=== PATIENT | male | born 1970 | race Hispanic/Latino ===

== ENCOUNTER 2017-12-04 10:46 | Emergency (ER) | payer SELFPAY, OTHER ==
[2017-12-04 12:44] LABS: Bilirubin Negative (Negative); Blood, Urine Negative (Negative); Clarity CLEAR (Clear); Glucose, Urine (Dipstick) Negative (Negative); Leukocyte Negative (Negative); Nitrite Negative (Negative); Protein, Urine (Dipstick) Negative (Neg-Trace); Specific Gravity, Urine 1.016 (1.002-1.036); Urobilinogen 0.2 mg/dL (0.2-1.0)
[2017-12-04 12:55] LABS: #Lymphocytes 0.4 thou/uL (1.20-3.40); #Monocytes 0.3 thou/uL (0.11-0.59); #Neutrophils 8.6 thou/uL (1.40-6.50); %Eosinophils 0.2 % (0.0-10.0); %Lymphocytes 4.4 % (21.0-51.0); %Monocytes 3.6 % (0.0-10.0); %Neutrophils 91.8 % (42.0-75.0); Hemoglobin 16.5 g/dL (14.0-18.0); Mean Corpuscular HGB CONC 34.8 g/dL (32.0-36.0); Mean Corpuscular Volume 89.1 fl (80.0-94.0); Mean Platelet Volume 9.2 fL (7.4-10.4); Platelet Count 173 thou/uL (130-400); RBC Distribution Width 11.4 % (11.5-14.5); Red Blood Cell (RBC) Count 5.33 mill/uL (4.70-6.10); White Blood Cell (WBC) Count 9.4 thou/uL (4.8-10.8)
[2017-12-04] MEDS ORDERED: Acetaminophen 500 MG TAB ONE (13:10)
[2017-12-04 13:20] LABS: ALT (SGPT) 91 U/L (8-55); AST (SGOT) 62 U/L (5-34); Albumin 4.7 g/dL (3.5-5.0); Alkaline Phosphatase 99 U/L (40-150); Anion Gap 14 mmol/L (10-20); BUN (Urea Nitrogen) 21 mg/dL (8.9-20.6); Bilirubin, Total 0.7 mg/dL (0.2-1.2); Calc. Creatinine Clearance 0 mL/min (70-130); Carbon Dioxide 25 mmol/L (22-29); Chloride 99 mmol/L (98-107); Estimated GFR-MDRD 69; Globulin 3.1 g/dL (2.4-3.5); Glucose 117 mg/dL (70-105); Potassium 4.3 mmol/L (3.5-5.1); Protein, Total 7.8 g/dL (6.0-8.3); Sodium 134 mmol/L (136-145)
--- NOTE | 2017-12-04 15:51 | RAD ---
SINGLE VIEW OF THE CHEST: Comparison: None. History: Tremors, cough. FINDINGS: Single view of the chest shows a normal sized cardiomediastinal silhouette. There is no evidence of c onsolidation, mass, or pleural effusion. The bones are unremarkable. IMPRESSION: No evidence of acute cardiopulmonary disease. POS: [facility]
[2017-12-04] MEDS ORDERED: traMADol HCl 50 MG TAB ONE (15:52)
--- NOTE | 2017-12-04 15:52 | RAD ---
LUMBAR SPINE 3 VIEWS: Date: 12/04/17 HISTORY: Pain. COMPARISON: Lumbar spine radiographs from 2015. FINDINGS: No acute fracture or malalignment. Minimal narrowing L4-5 disc space. Paraspinal soft tissues are unremarkable. IMPRESSION: No acute abnormality. Very mild spondylosis L4-5. POS: [facility]
--- NOTE | 2017-12-04 15:53 | RAD ---
TWO VIEWS LEFT HIP: Comparison: None. History: Tremors, myalgia. Bilateral lower extremity aching. FINDINGS: Two views of the right hip shows no evidence of acute fracture or dislocation. No degenerative change s are seen. No soft tissue swelling is present. IMPRESSION: Unremarkable exam. POS: [facility]
== END 2017-12-04 17:23 | disposition home or self-care (01) ==
LOC: ERS 10:46
DX: J18.9 Pneumonia, unspecified organism (principal); K21.9 Gastro-esophageal reflux disease without esophagitis
CPT/HCPCS: 36415; 71045; 72100; 80053; 81003; 85025; 87804; 99283

== ENCOUNTER 2017-12-05 20:35 | Emergency (ER) | payer SELFPAY ==
[2017-12-05 21:38] LABS: #Basophils 0.1 thou/uL (0.0-0.2); #Eosinphils 0.1 thou/uL (0.0-0.7); #Lymphocytes 1.4 thou/uL (1.20-3.40); #Monocytes 0.5 thou/uL (0.11-0.59); #Neutrophils 2.1 thou/uL (1.40-6.50); %Basophils 1.5 % (0.0-1.0); %Eosinophils 1.7 % (0.0-10.0); %Monocytes 12.6 % (0.0-10.0); %Neutrophils 50.2 % (42.0-75.0); Hemoglobin 15.5 g/dL (14.0-18.0); Mean Corpuscular HGB CONC 34.4 g/dL (32.0-36.0); Mean Corpuscular Hemoglobin 29.2 pg (27.0-31.0); Mean Platelet Volume 10.3 fL (7.4-10.4); Platelet Count 175 thou/uL (130-400); RBC Distribution Width 10.5 % (11.5-14.5); Red Blood Cell (RBC) Count 5.31 mill/uL (4.70-6.10); White Blood Cell (WBC) Count 4.2 thou/uL (4.8-10.8)
--- NOTE | 2017-12-05 21:43 | RAD ---
PA AND LATERAL CHEST: 12/05/17 HISTORY: Shortness of breath, dyspnea. Heart size and mediastinum are within normal limits. The lungs are clear of infiltrates. No bony find ings. IMPRESSION: No active intrathoracic disease. POS: [facility]
[2017-12-05 21:53] LABS: ALT (SGPT) 95 U/L (8-55); AST (SGOT) 46 U/L (5-34); Albumin 4.3 g/dL (3.5-5.0); Alkaline Phosphatase 101 U/L (40-150); Anion Gap 14 mmol/L (10-20); BUN (Urea Nitrogen) 14 mg/dL (8.9-20.6); Bilirubin, Total 0.5 mg/dL (0.2-1.2); Calc. Creatinine Clearance 0 mL/min (70-130); Calcium 9.6 mg/dL (7.8-10.44); Carbon Dioxide 28 mmol/L (22-29); Chloride 100 mmol/L (98-107); Estimated GFR-MDRD 68; Globulin 3.1 g/dL (2.4-3.5); Glucose 113 mg/dL (70-105); Lipase 52 U/L (8-78); Potassium 4.2 mmol/L (3.5-5.1); Protein, Total 7.4 g/dL (6.0-8.3); Sodium 138 mmol/L (136-145)
[2017-12-05 21:56] LABS: CKMB 0.6 ng/mL (0-6.6); Troponin I 0.025 ng/mL (< 0.028)
== END 2017-12-05 22:25 | disposition home or self-care (01) ==
LOC: SCSER 20:35
DX: R50.9 Fever, unspecified (principal); K21.9 Gastro-esophageal reflux disease without esophagitis
CPT/HCPCS: 71046; 80053; 82553; 83690; 83880; 84484; 85025; 85379; 93005

== ENCOUNTER 2018-02-25 18:05 | Emergency (ER) | payer OTHER, SELFPAY | END 2018-02-25 18:22 | disposition home or self-care (01) | LOC: SCSER 18:05 | DX: H66.92 Otitis media, unspecified, left ear (principal); K21.9 Gastro-esophageal reflux disease without esophagitis | CPT/HCPCS: 99283 ==

== ENCOUNTER 2018-08-06 18:11 | Observation (INO) | payer OTHER, SELFPAY ==
[2018-08-06 18:43] LABS: #Basophils 0.1 thou/uL (0.0-0.2); #Eosinphils 0.3 thou/uL (0.0-0.7); #Lymphocytes 3.5 thou/uL (1.20-3.40); #Monocytes 0.4 thou/uL (0.11-0.59); %Basophils 1.2 % (0.0-1.0); %Eosinophils 3.8 % (0.0-10.0); %Lymphocytes 42.1 % (21.0-51.0); %Neutrophils 47.9 % (42.0-75.0); Hemoglobin 16.8 g/dL (14.0-18.0); Mean Corpuscular HGB CONC 34.2 g/dL (32.0-36.0); Mean Corpuscular Hemoglobin 30.3 pg (27.0-31.0); Mean Corpuscular Volume 88.5 fL (78.0-98.0); Mean Platelet Volume 9.4 fL (7.4-10.4); Platelet Count 225 thou/uL (130-400); RBC Distribution Width 11.5 % (11.5-14.5); Red Blood Cell (RBC) Count 5.56 mill/uL (4.70-6.10); White Blood Cell (WBC) Count 8.4 thou/uL (4.8-10.8)
[2018-08-06 19:04] LABS: ALT (SGPT) 59 U/L (8-55); AST (SGOT) 35 U/L (5-34); Albumin 5.1 g/dL (3.5-5.0); Alkaline Phosphatase 96 U/L (40-150); Anion Gap 12 mmol/L (10-20); BUN (Urea Nitrogen) 18 mg/dL (8.9-20.6); Bilirubin, Total 0.4 mg/dL (0.2-1.2); CK (CPK) 157 U/L (30-200); Calc. Creatinine Clearance 0 mL/min (70-130); Carbon Dioxide 26 mmol/L (22-29); Chloride 105 mmol/L (98-107); Estimated GFR-MDRD 54; Globulin 3.5 g/dL (2.4-3.5); Glucose 109 mg/dL (70-105); Potassium 4.2 mmol/L (3.5-5.1); Protein, Total 8.6 g/dL (6.0-8.3); Sodium 139 mmol/L (136-145)
[2018-08-06 19:07] LABS: CKMB 1.5 ng/mL (0-6.6); Troponin I Less than 0.010 ng/mL (< 0.028)
[2018-08-06] MEDS ORDERED: Ondansetron HCl/PF 4 MG/2 ML Vial ONE (19:19)
--- NOTE | 2018-08-06 19:22 | RAD ---
FRONTAL VIEW CHEST: INDICATIONS: Chest pain. COMPARISON: 12/04/2017 TECHNIQUE: Two views provided. FINDINGS: The lungs are clear of consolidation. There is no effusion or pneumothorax. The cardiac silhouette is accentuated by the portable technique. Mild linear density of the left lower lung zone is grossly stable, which could relate to perihilar vasculature or a component of pericardial fad pad. IMPRESSION: No focal consolidation. POS: [facility]
[2018-08-06] MEDS ORDERED: Ondansetron HCl/PF 4 MG/2 ML Vial IVP PRN (21:03)
[2018-08-06] MEDS ORDERED: Acetaminophen 325 MG TAB PO PRN (21:03)
[2018-08-06 22:05] LABS: Troponin I Less than 0.010 ng/mL (< 0.028)
[2018-08-06 22:36] VITALS: BMI 29.5
[2018-08-07 01:43] LABS: Troponin I 0.016 ng/mL (< 0.028)
[2018-08-07 03:31] LABS: #Basophils 0.1 thou/uL (0.0-0.2); #Eosinphils 0.2 thou/uL (0.0-0.7); #Lymphocytes 2.6 thou/uL (1.20-3.40); #Monocytes 0.4 thou/uL (0.11-0.59); %Basophils 1.1 % (0.0-1.0); %Eosinophils 2.5 % (0.0-10.0); %Monocytes 5.7 % (0.0-10.0); %Neutrophils 54.8 % (42.0-75.0); Hemoglobin 15.2 g/dL (14.0-18.0); Mean Corpuscular HGB CONC 33.6 g/dL (32.0-36.0); Mean Corpuscular Volume 89.2 fL (78.0-98.0); Mean Platelet Volume 10.2 fL (7.4-10.4); Platelet Count 201 thou/uL (130-400); RBC Distribution Width 11.7 % (11.5-14.5); Red Blood Cell (RBC) Count 5.06 mill/uL (4.70-6.10); White Blood Cell (WBC) Count 7.3 thou/uL (4.8-10.8)
[2018-08-07 03:40] LABS: Anion Gap 12 mmol/L (10-20); BUN (Urea Nitrogen) 14 mg/dL (8.9-20.6); Calc. Creatinine Clearance 117 mL/min (70-130); Calcium 9.4 mg/dL (7.8-10.44); Carbon Dioxide 24 mmol/L (22-29); Chloride 107 mmol/L (98-107); Estimated GFR-MDRD 77; Glucose 102 mg/dL (70-105); Potassium 3.8 mmol/L (3.5-5.1); Sodium 139 mmol/L (136-145)
[2018-08-07 07:52] LABS: Acetaminophen Less than 6.0 mcg/mL (10.0-30.0); Alcohol Less than 10 mg/dL (Less than 10); Salicylate Less than 8.0 mg/dL (15.0-30.0)
--- NOTE | 2018-08-07 09:38 | HP ---
PRIMARY CARE PHYSICIAN: Dr. Sloan. CODE STATUS: FULL CODE. TIME OF EVALUATION: 8:33 p.m. CHIEF COMPLAINT: Palpitation. HISTORY OF PRESENT ILLNESS: This is a 48-year-old male patient with past medical history of having l robert significant medical problems, came to the hospital after having an episode of near syncope when donte gary was driving. Patient also has associated chest tightness, that was 6/10, with no clear triggers, n o alleviating factors. The patient reportedly has these symptoms occasionally in the past, he had to wear a Holter once but nothing was found. These symptoms present once to twice a year, not very raeann quently and that this is the first time that he is really a near syncope episode associated with the symptoms and previous episodes. No change in mental status had been seen. REVIEW OF SYSTEMS: Constitutional: No fever or chills, generalized weakness. Respiratory: No coug h, sputum production or shortness of breath. Cardiovascular: Patient has palpitations, chest tightn ess 6/10. Gastrointestinal: No nausea, vomiting, diarrhea or abdominal pain. MACHINE [employer]AM[employer]: The patient has near syncope. He felt he was about to pass out while driving. Genitourinary: No burning with urin ation. Extremities: No leg swelling. All other systems were reviewed and negative except for the f indings mentioned above. PAST MEDICAL HISTORY: Positive for pancreatitis, GERD, chronic back pain. PAST SURGICAL HISTORY: No surgical history. PSYCHIATRIC HISTORY: No previous psychiatric history. SOCIAL HISTORY: No alcohol, no drugs. No smoking history. DRUG ALLERGIES: No known drug allergies. REPORTED MEDICATIONS: None. PHYSICAL EXAMINATION: VITAL SIGNS: On presentation, blood pressure 135/87, heart rate 77, respiratory rate was 18, tempera ture 98.2, pain was 6/10, oxygen saturation was 98 on room air. GENERAL APPEARANCE: The patient is alert, oriented, no acute distress. HEENT: Eyes colon to conjunctivae. Moist oral mucosa. Anicteric. NECK: No JVD. RESPIRATORY: Bilateral air entry. No rales, no wheeze. Symmetrical expansion. CARDIOVASCULAR: Normal rate, regular rhythm. No murmurs, no gallop. No edema. ABDOMEN: Soft, normal bowel sounds. MUSCULOSKELETAL: Baseline range of motion and strength. No tenderness. SKIN: Warm and intact. No pallor, no rash, no redness. Peripheral pulses are present bilaterally. Sensory intact. NEUROLOGIC: Baseline sensorium. No areas of new focal weakness. Baseline speech. Cranial nerves s eem to be intact. PSYCHIATRIC: Patient is in a good mood. No anxiety, oriented, optimal judgment. DIAGNOSTIC DATA: EKG was reviewed. The patient has normal sinus rhythm with a rate of 88, MN 206, Q RS 113, QT corrected 438. No arrhythmias , acute ischemic event. The chest x-ray was reviewed. The patient has no focal consolidation. LABORATORY DATA: Reviewed. The patient has white count 8.4, hemoglobin 16.8, MCV 88, platelet count 225. Chemistry: Sodium 139, potassium 4.2, chloride 105, carbon dioxide 26, anion gap 12, BUN 18, creatinine 1.4 and previous admissions was 1.15, glucose 109, calcium 10, total bilirubin 0.4, AST 35 , ALT 59, alkaline phosphatase 96. Creatine kinase 157. Troponin was negative. Serum total protein 8.6, albumin 5.1. ASSESSMENT AND PLAN: The patient will be placed in the hospital the following medical problems, 1. Near syncope, . Patient has had these episodes in the past, this is the first time the smith ent has the feeling that he was about to pass out while he was driving. We did do an echo in the mor yaritza is normal. We will follow Cardiology recommendation for further workup, may need a loop recorde r placement. 2. Acute kidney injury. The patient has an increase in more than 0.3 mg per deciliter from creatini ne from previous admissions, we will hydrate, we will monitor, we will adjust treatment as needed. 3. Deep venous thrombosis prophylaxis. 4. Possible underlying arrhythmia. Patient has a strong family history of arrhythmia in the brother s, patient's son also has a history of PSVT being 28 years old, patient's uncles from the paternal si de has a history of atrial fibrillation, monitor on tele, we do echo in the morning. We will treat a ccordingly.
[2018-08-07] MEDS: Enoxaparin Sodium 40 MG/0.4 ML SYRINGE SC SCH (10:16)
[2018-08-07] MEDS: Sodium Chloride 0.9% 1,000 ML IV SCH (10:17)
--- NOTE | 2018-08-07 10:54 | PDOC.PN ---
- Subjective Encounter Start Date: 08/07/18 Encounter Start Time: 08:20 Subjective: no chest pain or palp or sob now -: is ambulating in room - Objective Resuscitation Status: Resuscitation Status FULL:Full Resuscitation MAR Reviewed: Yes Vital Signs & Weight: Vital Signs (12 hours) Temp Pulse Resp BP Pulse Ox 08/07/18 07:46 97.9 F 65 16 115/62 95 08/07/18 04:11 97.6 F 61 14 118/68 95 Weight Weight 205 lb 5 oz I&O: 08/06/18 08/07/18 08/08/18 06:59 06:59 06:59 Intake Total 120 Output Total 700 Balance -580 Result Diagrams: 08/07/18 01:02 08/07/18 01:02 Phys Exam - Physical Examination HEENT: PERRLA, moist MMs Neck: no JVD, supple Respiratory: no wheezing, no rales Cardiovascular: RRR, no significant murmur Gastrointestinal: soft, non-tender, positive bowel sounds Musculoskeletal: no edema, pulses present Neurological: non-focal, moves all 4 limbs Psychiatric: normal affect, A&O x 3 Dx/Plan (1) Palpitations Code(s): R00.2 - PALPITATIONS Status: Resolved (2) Syncope Code(s): R55 - SYNCOPE AND COLLAPSE Status: Resolved Qualifiers: Syncope type: unspecified Qualified Code(s): R55 - Syncope and collapse (3) GERD (gastroesophageal reflux disease) Code(s): K21.9 - GASTRO-ESOPHAGEAL REFLUX DISEASE WITHOUT ESOPHAGITIS Status: Chronic Qualifiers: Esophagitis presence: esophagitis presence not specified Qualified Code(s) : K21.9 - Gastro-esophageal reflux disease without esophagitis (4) Chronic back pain Code(s): M54.9 - DORSALGIA, UNSPECIFIED; G89.29 - OTHER CHRONIC PAIN Status: Chronic Qualifiers: Back pain location: low back pain (5) BRIGHT (acute kidney injury) Code(s): N17.9 - ACUTE KIDNEY FAILURE, UNSPECIFIED Status: Resolved (6) Dehydration Code(s): E86.0 - DEHYDRATION Status: Resolved - Plan echo, stress test per cardio advice -: gentle iv hydration -: hemostable -: aspirin -: dc plan per cardio advice * . Review of Systems - Medications/Allergies Allergies/Adverse Reactions: Allergies Allergy/AdvReac Type Severity Reaction Status Date / Time No Known Allergies Allergy Verified 08/06/18 23:01 Medications: Current Medications Acetaminophen (Tylenol) 650 mg PO Q4H PRN PRN Reason: Headache/Fever or Pain Enoxaparin Sodium (Lovenox) 40 mg SC 0900 [facility] Last Admin: 08/07/18 10:16 Dose: 40 mg Sodium Chloride (Normal Saline 0.9%) 1,000 mls @ 50 mls/hr IV .Q20H [facility] Last Admin: 08/07/18 10:17 Dose: 1,000 mls Ondansetron HCl (Zofran) 4 mg IVP Q6H PRN PRN Reason: Nausea/Vomiting
[2018-08-07 11:07] LABS: Amphetamine Not Detected (NotDetected); Barbiturates Screen Not Detected (NotDetected); Benzodiazepine Screen Not Detected (NotDetected); Cocaine Metabolite Screen Not Detected (NotDetected); Medtox Control Line Valid? VALID (VALID); Medtox Reader # READER 4; Methadone Not Detected (NotDetected); Methamphetamine Not Detected (NotDetected); Opiate Screen Not Detected (NotDetected); Oxycodone Screen Not Detected (NotDetected); Phencyclidine (PCP) Not Detected (NotDetected); THC/Cannabinoid Screen Not Detected (NotDetected); Tricyclic Screen Not Detected (NotDetected)
--- NOTE | 2018-08-07 11:13 | CON ---
DATE OF CONSULTATION: 08/07/2018 HISTORY: The patient is a 48-year-old gentleman who presents for evaluation of chest pain and near syncope. The patient states he has had a previous history of palpitations that usually last just a few seconds. The patient was in his usual state of health when he was driving and suddenly developed midsternal chest discomfort. He suddenly became very lightheaded and weak. He pulled over to the side of road and slowly drove home on the highway. The patient states he felt very lightheaded. He did not lose consciousness. The chest discomfort lasted for several minutes and resolved. The patient denied any previous history of chest discomfort. The patient denies having any history of dyspnea, PND or orthopnea. PAST MEDICAL HISTORY: Pancreatitis. PAST SURGICAL HISTORY: None. SOCIAL HISTORY: Nonsmoker. MEDICATIONS: None. FAMILY HISTORY: Positive family history of heart disease. ALLERGIES: No known drug allergies. PHYSICAL EXAMINATION: GENERAL: This is a well-developed gentleman in no acute distress. VITAL SIGNS: Blood pressure 115/62. NECK: No jugular venous distention, no carotid bruits. LUNGS: Clear to auscultation. HEART: Regular rate and rhythm, normal S1, S2, no murmurs. ABDOMEN: Nondistended. EXTREMITIES: Showed no edema. SKIN: Warm and dry. NEUROLOGIC: Nonfocal. VASCULAR: Radial pulses 2+. LABORATORY DATA: Sodium 139, potassium 3.8, chloride 107, bicarbonate 24, BUN 14, creatinine is 0.103, troponin less than 0.01. White blood cell count 7.3, hemoglobin 15.2, hematocrit 45.2, platelets 201. EKG revealed normal sinus rhythm with a normal ECG. IMPRESSION: 1. Near syncope. 2. Chest pain. 3. History of pancreatitis. This gentleman had a near syncopal episode while driving and developed chest discomfort. From a cardiac standpoint, we will check his echocardiogram and proceed with Cardiolite stress testing. We will check orthostatic blood pressure. We will ask EP to evaluate. The patient has been warned that he should not be driving a motor vehicle until his EP evaluation is complete. He should avoid driving for at least 6 months. PLAN: 1. Check echocardiogram. 2. Proceed with Cardiolite stress testing. 3. Check orthostatic blood pressures. 4. EP evaluation for possible LINQ monitor. [facility]
--- NOTE | 2018-08-07 16:30 | NM ---
NUCLEAR MEDICINE CARDIAC MYOCARDIAL PERFUSION SPECT EJECTION FRACTION STUDY WALL MOTION CINE: 08/07/18 HISTORY: 48-year-old male with family history of coronary artery disease presents with chest pain. TECHNIQUE: Number of days: One. Rest study: Tc99m sestamibi (Cardiolite) dose: 9.0 mCi Exercise stress: treadmill. Stress study: Tc99m sestamibi (Cardiolite) dose: 30.6 mCi FINDINGS: CARDIAC (MYOCARDIAL PERFUSION) SPECT There are no reversible myocardial perfusion defects. EJECTION FRACTION STUDY EF = 60% WALL MOTION CINE Normal. IMPRESSION: No evidence of reversible ischemia. [place] [place] POS: [facility]
[2018-08-07] MEDS ORDERED: Ibuprofen 200 MG TAB PO SCH (16:45)
--- NOTE | 2018-08-07 22:25 | CON ---
DATE OF CONSULTATION: 08/07/2018 This is dictated as scribe for Dr. Tony Ayala. ELECTROPHYSIOLOGY CONSULTATION REFERRING PHYSICIAN: Steve Salazar MD REASON FOR CONSULTATION: Near syncope and collapse. HISTORY OF PRESENT ILLNESS: Mr. Frazier is a pleasant 48-year-old gentleman with an unremarkable [facility] medical history of only pancreatitis. He presented to [place] [facility] after an episode of palpitations and fluttering that made him feel lightheaded and dizzy with almost losing consciousn ess. He was in his usual state of health and was driving when he began to experience some bubbling o r fluttering sensation in his midsternal chest region. As mentioned, he became lightheaded and visio n started blacking out, but he did not completely lose consciousness. He reports this lasted for at least a minute and then resolved, but he felt very weak for the remainder of that day. He has a fair ly longstanding history of episodes similar to this, but has never had one where he is almost blacked out or has been this prolonged or as symptomatic. These episodes initially began 10-15 years ago an d 12 years ago, he underwent a similar workup for similar episodes, where he had a stress test perfor med in more of an out of hospital monitor. He was not found to have significant coronary artery dise ase and no arrhythmias were found on monitor. He reports that his episodes are fairly infrequent, bu t will cluster together from time to time. He has gone as long as a month without having an episode before and most episodes are 5-10 seconds in duration or less. REVIEW OF SYSTEMS: Currently, Mr. Frazier is feeling well. He does not have any cardiac concerns o r complaints. He denies heart racing, palpitations, chest pain or pressure, syncope, near syncope, s troke, or stroke-like symptoms. Twelve-point review of systems was conducted and is negative except that listed above and as per HPI. PAST MEDICAL HISTORY: 1. Pancreatitis. 2. Heart racing and palpitations, 10-15 years, infrequent. SOCIAL HISTORY: , lives with family. He is a nonsmoker. Positive for high amounts of caffei ne intake. FAMILY HISTORY: Positive for heart disease. HOME MEDICATIONS: None. Occasional Aleve as needed for pain. ALLERGIES: No known drug allergies. PHYSICAL EXAMINATION: VITAL SIGNS: Most recent vital signs, temperature 98.4, pulse 70, blood pressure 115/62, respiration s 12, oxygen is 93% on room air. Orthostatic pressures: Supine 120/70, sitting 123/82, standing 127 /82. DATABASE: EKG and telemetry were all personally reviewed and reflects normal sinus rhythm without an y bradycardia, tachycardia, pauses, or blocks. LABORATORY DATA: Hematology was reviewed and is unremarkable. Chemistry was reviewed. Potassium 3. 8, creatinine 1.03. Serial troponins were negative. TSH is 1.43. Otherwise, unremarkable chemistry panel. Echocardiogram on 08/07/2018, normal ejection fraction of 55%-60% and normal LV size, normal size atr ium bilaterally, overall structurally normal heart with a preserved ejection fraction. Stress test was performed today and was negative for suggested reversible ischemia and reinforces a p reserved ejection fraction of 55%-60%. IMPRESSION: 1. Near syncope and collapse. 2. Heart racing, palpitations, longstanding history of infrequent episodes. Never documented or cau ght on telemetry. 3. Structurally normal heart with a preserved ejection fraction. 4. Normal stress test. RECOMMENDATIONS: Given Mr. Frazier' history of intermittent episodes of heart racing and palpitatio ns that have been persistent over the past 10-15 years that are unpredictable, but do only happen at rest. He has not had any episodes with provocation or with exertion. This could reflect paroxysmal atrial fibrillation RVR episodes or various SVT. At this point, our recommendation is to undergo imp lantable loop recorder for continued monitoring. It is unlikely a 30-day monitor would capture his a rrhythmia given the infrequency of his episodes. This was discussed with Mr. Frazier and his , who was at bedside for the exam. Risks, benefits, and alternatives were discussed. Risks include pa in, swelling, and local irritation of the skin. Alternatives would be a long-term external monitorin g for 1-2 months, which again may or may not capture arrhythmia episodes given the infrequency of his symptoms. We will arrange for [employer] LINQ implantable loop recorder tomorrow morning at 8:00 a.m . The patient voices understanding and agrees with the plan of care.
[2018-08-08] MEDS ORDERED: Lidocaine 1% w/Epinephrine 1:100K 30 ML VIAL ONE (07:57)
[2018-08-08] MEDS: Sodium Chloride 0.9% 1,000 ML IV SCH (08:06)
--- NOTE | 2018-08-08 08:45 | PRG ---
DATE OF SERVICE: 08/08/2018 SUBJECTIVE: Mr. Rio Frazier seems to be doing well. No further recurrent syncopal spells are noted. He underwent a LINQ recorder implantation this morning. OBJECTIVE: VITAL SIGNS: Blood pressure 152/82, heart rate 70, respirations 12. The patient is afebrile. GENERAL: He is alert and oriented man in no apparent distress. NECK: Supple. Jugular veins not distended. CHEST: Coarse without crackles. CARDIOVASCULAR: Heart sounds are regular to rate and rhythm. No murmur or gallop. ABDOMEN: Benign. Bowel sounds positive. EXTREMITIES: Lower extremities without edema, clubbing or cyanosis. Telemetry reveals sinus rhythm. ASSESSMENT AND PLAN: Mr. Frazier is a pleasant 48-year-old man with history of no significant cardi ac issues. He presented with recurrent palpitations and recurrent near syncopal/syncopal spell. He underwent a LINQ recorder insertion today. The cardiac workup otherwise unremarkable. PLAN: Continue monitoring. Routine followup requested in the office in 4-6 weeks.
--- NOTE | 2018-08-08 08:53 | OP ---
DATE OF PROCEDURE: 08/08/2018 SURGEON: Dr. Tony Ayala REFERRING PHYSICIAN: Dr. Steve Salazar OPERATIVE PROCEDURE: Loop recorder implant. REASON FOR PROCEDURE: Mr. Frazier is a 48-year-old man with syncope with recurrent palpitations, re mote history of workup with negative results here for a loop recorder insertion. PROCEDURE: The patient's chest was prepped, draped and anesthetized using subcutaneous lidocaine wit h standard [employer] LINQ insertion tool kit, the loop recorder was inserted. The model number [id number] , serial number [id number]. CONCLUSION: Successful LINQ recorder implant. PLAN: At this point, we will continue monitoring. He is encouraged to follow up in our office in ab out 6 weeks or earlier if symptoms dictate.
[2018-08-08] MEDS: Enoxaparin Sodium 40 MG/0.4 ML SYRINGE SC SCH (10:16)
--- NOTE | 2018-08-08 11:23 | PDOC.PN ---
- Subjective Encounter Start Date: 08/08/18 Encounter Start Time: 10:20 Subjective: feels better, no dizziness or chest pain or sob -: is amb in room -: got LINC placed this am - Objective Resuscitation Status: Resuscitation Status FULL:Full Resuscitation MAR Reviewed: Yes Vital Signs & Weight: Vital Signs (12 hours) Temp Pulse Resp BP Pulse Ox 08/08/18 08:02 98.4 F 71 16 131/82 96 08/08/18 05:15 97.5 F L 60 15 126/72 96 Weight Weight 205 lb 5 oz I&O: 08/07/18 08/08/18 08/09/18 06:59 06:59 06:59 Intake Total 120 2420 Output Total 700 550 Balance -580 1870 Result Diagrams: 08/07/18 01:02 08/07/18 01:02 Phys Exam - Physical Examination HEENT: PERRLA, moist MMs Neck: no JVD, supple Respiratory: no wheezing, no rales Cardiovascular: RRR, no significant murmur Gastrointestinal: soft, non-tender, positive bowel sounds Musculoskeletal: no edema, pulses present Neurological: non-focal, moves all 4 limbs Psychiatric: normal affect, A&O x 3 Dx/Plan (1) Palpitations Code(s): R00.2 - PALPITATIONS Status: Resolved (2) Syncope Code(s): R55 - SYNCOPE AND COLLAPSE Status: Resolved Qualifiers: Syncope type: unspecified Qualified Code(s): R55 - Syncope and collapse (3) GERD (gastroesophageal reflux disease) Code(s): K21.9 - GASTRO-ESOPHAGEAL REFLUX DISEASE WITHOUT ESOPHAGITIS Status: Chronic Qualifiers: Esophagitis presence: esophagitis presence not specified Qualified Code(s) : K21.9 - Gastro-esophageal reflux disease without esophagitis (4) Chronic back pain Code(s): M54.9 - DORSALGIA, UNSPECIFIED; G89.29 - OTHER CHRONIC PAIN Status: Chronic Qualifiers: Back pain location: low back pain (5) BRIGHT (acute kidney injury) Code(s): N17.9 - ACUTE KIDNEY FAILURE, UNSPECIFIED Status: Resolved (6) Dehydration Code(s): E86.0 - DEHYDRATION Status: Resolved - Plan hemostable -: to f/u with in 4 weeks -: Had Linc recorder placed this am by * . Review of Systems - Medications/Allergies Allergies/Adverse Reactions: Allergies Allergy/AdvReac Type Severity Reaction Status Date / Time No Known Allergies Allergy Verified 08/06/18 23:01 Medications: Current Medications Acetaminophen (Tylenol) 650 mg PO Q4H PRN PRN Reason: Headache/Fever or Pain Enoxaparin Sodium (Lovenox) 40 mg SC 0900 [facility] Last Admin: 08/08/18 10:16 Dose: 40 mg Ondansetron HCl (Zofran) 4 mg IVP Q6H PRN PRN Reason: Nausea/Vomiting
[2018-08-08 12:11] VITALS: BP 137/77; TEMP 98.2
--- NOTE | 2018-08-08 14:24 | DIS ---
DATE OF ADMISSION: 08/06/2018 DATE OF DISCHARGE: 08/08/2018 DISCHARGE DISPOSITION: To home. PRIMARY DISCHARGE DIAGNOSIS: Near syncope with palpitations, resolved. SECONDARY DISCHARGE DIAGNOSES: Acute kidney injury, resolved; chronic back pain; gastroesophageal re flux disease, dehydration. PROCEDURES DONE DURING HOSPITALIZATION: Patient has had nuclear stress test done, which showed no si gn of reversible ischemia. Wall motion was normal. Ejection fraction was 60%. Echo with 2D Doppler showed EF of 55%-60%, LV size was normal. He has had placement of LINQ recorder by Dr. Tony Ayala this morning. H&H is 15 and 45, platelet count 201. Troponin x3 was negative. TSH 1.43. Urine arabella g screen was negative. DISCHARGE MEDICATIONS: Tizanidine p.r.n., Ultram p.r.n. INPATIENT CONSULTS: Dr. Salazar for Cardiology, Dr. Tony Ayala for Electrophysiology. BRIEF COURSE DURING HOSPITALIZATION: Patient initially came to ER with complaints of palpitations an d almost passing out when he was driving. In view of this history, he was placed under observation o n telemetry. He has had complete cardiac workup done. An echo with 2D Doppler showed normal ejectio n fraction and wall motion. Nuclear stress test done showed no reversible ischemia. The patient had a LINQ recorder implanted by Dr. Tony Ayala today. He needs to follow up with Dr. Tony Ayala in 4 weeks and primary care physician in 1 week. Prior to discharge, he is ambulating and eating well.
--- NOTE | 2018-08-11 16:30 | EKG ---
Test Reason : Blood Pressure : / mmHG Vent. Rate : 088 BPM Atrial Rate : 088 BPM P-R Int : 206 ms QRS Dur : 112 ms QT Int : 362 ms P-R-T Axes : 047 -12 049 degrees QTc Int : 438 ms Normal sinus rhythm Normal ECG Confirmed by FRANKI GALLEGOS ([id number]), news videotape editor LONI SO ([id number]) on 08/11/2018 4:29:53 PM Referred By: Confirmed By:FRANKI GALLEGOS
== END 2018-08-08 13:09 | disposition home or self-care (01) ==
LOC: ERS 18:11 → 2SW 21:03
PROVIDERS: ADMIT Hospitalist; ATTEND Hospitalist
PROC: 0JH632Z Insertion of Monitoring Device into Chest Subcutaneous Tissue and Fascia, Percutaneous Approach (ICD-10-PCS; principal; 2018-08-08)
DX: R55 Syncope and collapse (principal); R07.89 Other chest pain; K21.9 Gastro-esophageal reflux disease without esophagitis; G89.29 Other chronic pain; M54.9 Dorsalgia, unspecified; N17.9 Acute kidney failure, unspecified; E86.0 Dehydration
CPT/HCPCS: 33282; 36415; 71045; 78452; 80048; 80053; 80306; 80307; 82553; 84443; 84484; 85025; 93005; 93017; 93306; 94760; 96361; 96372; 96374; A9500; C1764; G0378; J1650; J2001; J2405

== ENCOUNTER 2021-07-19 10:07 | Inpatient (IN) | payer SELFPAY ==
[2021-07-19] MEDS ORDERED: Ketorolac Tromethamine 30 MG/ML VIAL ONE (10:40)
[2021-07-19] MEDS ORDERED: Albuterol 200 PUFF (6.7GM INHALER) ONE (10:40)
[2021-07-19 10:42] LABS: #Lymphocytes 0.6 thou/uL (1.20-3.40); #Monocytes 0.5 thou/uL (0.11-0.59); %Basophils 0.2 % (0.0-1.0); %Eosinophils 0.1 % (0.0-10.0); %Lymphocytes 6.2 % (21.0-51.0); %Neutrophils 88.5 % (42.0-75.0); Hemoglobin 16.2 g/dL (14.0-18.0); Mean Corpuscular HGB CONC 33.5 g/dL (32.0-36.0); Mean Corpuscular Hemoglobin 29.7 pg (27.0-31.0); Mean Corpuscular Volume 88.9 fL (78.0-98.0); Mean Platelet Volume 8.8 fL (7.4-10.4); Platelet Count 196 thou/uL (130-400); RBC Distribution Width 11.2 % (11.5-14.5); Red Blood Cell (RBC) Count 5.43 mill/uL (4.70-6.10); White Blood Cell (WBC) Count 10.2 thou/uL (4.8-10.8)
[2021-07-19 11:08] LABS: Anion Gap 16 mmol/L (10-20); BUN (Urea Nitrogen) 10 mg/dL (8.9-20.6); Calc. Creatinine Clearance 0 mL/min (70-130); Carbon Dioxide 25 mmol/L (22-29); Chloride 96 mmol/L (98-107); Potassium 4.4 mmol/L (3.5-5.1); Sodium 133 mmol/L (136-145)
[2021-07-19 11:09] LABS: ALT (SGPT) 66 U/L (8-55); AST (SGOT) 57 U/L (5-34); Albumin 4.1 g/dL (3.5-5.0); Alkaline Phosphatase 154 U/L (40-110); Bilirubin, Total 0.9 mg/dL (0.2-1.2); Calcium 8.8 mg/dL (7.8-10.44); Globulin 3.4 g/dL (2.4-3.5); Glucose 110 mg/dL (70-105); Protein, Total 7.5 g/dL (6.0-8.3)
[2021-07-19] MEDS ORDERED: Bisacodyl 5 MG TAB PO PRN (16:35)
[2021-07-19] MEDS ORDERED: Senokot S 8.6-50 MG TAB PO PRN (16:35)
[2021-07-19] MEDS ORDERED: Ondansetron PF 4 MG/2 ML Vial IVP PRN (16:35)
[2021-07-19] MEDS ORDERED: Benzonatate 100 MG CAP PO PRN (16:39)
[2021-07-19] MEDS ORDERED: Dexamethasone 4 mg/ml Vial SLOW IVP SCH (16:45)
[2021-07-19] MEDS: Acetaminophen 325 MG TAB PO PRN (21:14)
[2021-07-19] MEDS: Famotidine 20 MG TAB PO SCH (21:15)
[2021-07-19] MEDS: Melatonin 3 MG TAB PO PRN (22:04)
[2021-07-20 00:08] VITALS: BMI 29.5
[2021-07-20 06:07] LABS: #Lymphocytes 0.6 thou/uL (1.20-3.40); #Monocytes 0.3 thou/uL (0.11-0.59); #Neutrophils 5.2 thou/uL (1.40-6.50); %Eosinophils 0.3 % (0.0-10.0); %Lymphocytes 10.3 % (21.0-51.0); %Monocytes 4.1 % (0.0-10.0); %Neutrophils 85.3 % (42.0-75.0); Hemoglobin 15.6 g/dL (14.0-18.0); Mean Corpuscular HGB CONC 34.7 g/dL (32.0-36.0); Mean Corpuscular Hemoglobin 30.9 pg (27.0-31.0); Mean Platelet Volume 8.8 fL (7.4-10.4); Platelet Count 194 thou/uL (130-400); RBC Distribution Width 11.3 % (11.5-14.5); Red Blood Cell (RBC) Count 5.07 mill/uL (4.70-6.10); White Blood Cell (WBC) Count 6.1 thou/uL (4.8-10.8)
[2021-07-20 06:35] LABS: ALT (SGPT) 87 U/L (8-55); AST (SGOT) 60 U/L (5-34); Albumin 3.7 g/dL (3.5-5.0); Alkaline Phosphatase 186 U/L (40-110); Anion Gap 16 mmol/L (10-20); BUN (Urea Nitrogen) 10 mg/dL (8.9-20.6); Bilirubin, Total 0.8 mg/dL (0.2-1.2); Calc. Creatinine Clearance 144 mL/min (70-130); Calcium 8.7 mg/dL (7.8-10.44); Carbon Dioxide 23 mmol/L (22-29); Chloride 100 mmol/L (98-107); Globulin 2.7 g/dL (2.4-3.5); Glucose 150 mg/dL (70-105); Potassium 4.5 mmol/L (3.5-5.1); Protein, Total 6.4 g/dL (6.0-8.3); Sodium 134 mmol/L (136-145)
[2021-07-20] MEDS ORDERED: Pharmacy to Dose REMDESIVIR IVPB PRN ×2 (09:11→09:22)
[2021-07-20] MEDS: Dexamethasone 10 MG/ML VIAL SLOW IVP SCH (09:25)
[2021-07-20] MEDS: Famotidine 20 MG TAB PO SCH ×2 (09:25→20:08)
[2021-07-20] MEDS: Enoxaparin Sodium 40 MG/0.4 ML SYRINGE SC SCH (09:25)
[2021-07-20] MEDS: Acetaminophen 325 MG TAB PO PRN (16:56)
[2021-07-20] MEDS: Albuterol 200 PUFF (6.7GM INHALER) INH PRN (21:45)
[2021-07-20] MEDS: Guaifenesin DM 100-10/5 ML UDCUP PO PRN (22:12)
[2021-07-20] MEDS: Melatonin 3 MG TAB PO PRN (22:19)
[2021-07-21] MEDS: Lorazepam 0.5 MG TAB PO PRN ×2 (04:40→20:24)
[2021-07-21] MEDS: Famotidine 20 MG TAB PO SCH ×2 (08:19→20:24)
[2021-07-21] MEDS: Zinc Sulfate 220 MG CAP PO SCH (08:19)
[2021-07-21] MEDS: Enoxaparin Sodium 40 MG/0.4 ML SYRINGE SC SCH (08:19)
[2021-07-21] MEDS: Dexamethasone 10 MG/ML VIAL SLOW IVP SCH (08:19)
[2021-07-21] MEDS: Ascorbic Acid 500 mg Chewable Tablet PO SCH (08:19)
[2021-07-21] MEDS: BARICITINIB 2 MG TAB PO SCH (10:23)
[2021-07-21] MEDS: Acetaminophen 325 MG TAB PO PRN (13:42)
[2021-07-21] MEDS: Guaifenesin DM 100-10/5 ML UDCUP PO PRN ×2 (13:42→20:33)
[2021-07-21] MEDS: Melatonin 3 MG TAB PO PRN (20:24)
[2021-07-22] MEDS: Albuterol 200 PUFF (6.7GM INHALER) INH PRN (01:30)
[2021-07-22] MEDS: Guaifenesin DM 100-10/5 ML UDCUP PO PRN ×3 (01:49→20:30)
[2021-07-22] MEDS: Lorazepam 0.5 MG TAB PO PRN ×3 (01:50→20:30)
[2021-07-22] MEDS: Acetaminophen 325 MG TAB PO PRN (06:45)
[2021-07-22] MEDS: Zinc Sulfate 220 MG CAP PO SCH (08:56)
[2021-07-22] MEDS: Ascorbic Acid 500 mg Chewable Tablet PO SCH (08:56)
[2021-07-22] MEDS: Famotidine 20 MG TAB PO SCH ×2 (08:56→20:30)
[2021-07-22] MEDS: BARICITINIB 2 MG TAB PO SCH (08:56)
[2021-07-22] MEDS: Enoxaparin Sodium 40 MG/0.4 ML SYRINGE SC SCH (08:56)
[2021-07-22] MEDS: Dexamethasone 10 MG/ML VIAL SLOW IVP SCH (08:56)
[2021-07-23] MEDS: Albuterol 200 PUFF (6.7GM INHALER) INH PRN (04:35)
[2021-07-23] MEDS: Acetaminophen 325 MG TAB PO PRN (04:42)
[2021-07-23] MEDS: Guaifenesin DM 100-10/5 ML UDCUP PO PRN ×2 (04:44→19:36)
[2021-07-23 08:54] LABS: ALT (SGPT) 89 U/L (8-55); AST (SGOT) 38 U/L (5-34); Albumin 3.6 g/dL (3.5-5.0); Alkaline Phosphatase 176 U/L (40-110); Anion Gap 14 mmol/L (10-20); BUN (Urea Nitrogen) 16 mg/dL (8.9-20.6); Bilirubin, Total 0.9 mg/dL (0.2-1.2); Calc. Creatinine Clearance 137 mL/min (70-130); Calcium 8.7 mg/dL (7.8-10.44); Carbon Dioxide 26 mmol/L (22-29); Chloride 94 mmol/L (98-107); Globulin 2.9 g/dL (2.4-3.5); Glucose 110 mg/dL (70-105); Potassium 4.3 mmol/L (3.5-5.1); Protein, Total 6.5 g/dL (6.0-8.3); Sodium 130 mmol/L (136-145)
[2021-07-23] MEDS: Famotidine 20 MG TAB PO SCH ×2 (09:06→21:18)
[2021-07-23] MEDS: BARICITINIB 2 MG TAB PO SCH (09:06)
[2021-07-23] MEDS: Ascorbic Acid 500 mg Chewable Tablet PO SCH (09:06)
[2021-07-23] MEDS: Zinc Sulfate 220 MG CAP PO SCH (09:06)
[2021-07-23] MEDS: Dexamethasone 10 MG/ML VIAL SLOW IVP SCH (09:07)
[2021-07-23] MEDS: Enoxaparin Sodium 40 MG/0.4 ML SYRINGE SC SCH (09:07)
[2021-07-23 10:15] LABS: #Lymphocytes 1.7 thou/uL (1.20-3.40); #Monocytes 1.2 thou/uL (0.11-0.59); #Neutrophils 11.7 thou/uL (1.40-6.50); %Basophils 0.2 % (0.0-1.0); %Eosinophils 0.2 % (0.0-10.0); %Lymphocytes 11.6 % (21.0-51.0); %Monocytes 8.1 % (0.0-10.0); Hemoglobin 16.2 g/dL (14.0-18.0); Mean Corpuscular Hemoglobin 29.9 pg (27.0-31.0); Mean Platelet Volume 7.8 fL (7.4-10.4); Platelet Count 351 thou/uL (130-400); RBC Distribution Width 11.4 % (11.5-14.5); Red Blood Cell (RBC) Count 5.41 mill/uL (4.70-6.10); White Blood Cell (WBC) Count 14.7 thou/uL (4.8-10.8)
[2021-07-23] MEDS: Lorazepam 0.5 MG TAB PO PRN (21:18)
[2021-07-24] MEDS: Enoxaparin Sodium 40 MG/0.4 ML SYRINGE SC SCH (08:01)
[2021-07-24] MEDS: Ascorbic Acid 500 mg Chewable Tablet PO SCH (08:01)
[2021-07-24] MEDS: BARICITINIB 2 MG TAB PO SCH (08:01)
[2021-07-24] MEDS: Dexamethasone 10 MG/ML VIAL SLOW IVP SCH (08:01)
[2021-07-24] MEDS: Famotidine 20 MG TAB PO SCH ×2 (08:01→21:22)
[2021-07-24] MEDS: Guaifenesin DM 100-10/5 ML UDCUP PO PRN ×3 (08:02→21:22)
[2021-07-24] MEDS: Zinc Sulfate 220 MG CAP PO SCH (08:02)
[2021-07-24] MEDS: Albuterol 200 PUFF (6.7GM INHALER) INH PRN ×2 (08:02→14:57)
[2021-07-24] MEDS: Acetaminophen 325 MG TAB PO PRN ×2 (14:53→21:23)
[2021-07-24] MEDS: Cepastat Lozenges 1 LOZ PO PRN (17:49)
[2021-07-24] MEDS: Lorazepam 0.5 MG TAB PO PRN (21:21)
[2021-07-25] MEDS: Cepastat Lozenges 1 LOZ PO PRN ×2 (04:46→09:39)
[2021-07-25 08:04] LABS: #Basophils 0.1 thou/uL (0.0-0.2); #Eosinphils 0.1 thou/uL (0.0-0.7); #Lymphocytes 2.3 thou/uL (1.20-3.40); #Monocytes 1.2 thou/uL (0.11-0.59); %Basophils 0.3 % (0.0-1.0); %Eosinophils 0.4 % (0.0-10.0); %Lymphocytes 12.8 % (21.0-51.0); %Monocytes 6.9 % (0.0-10.0); %Neutrophils 79.6 % (42.0-75.0); Hemoglobin 15.6 g/dL (14.0-18.0); Mean Corpuscular HGB CONC 31.7 g/dL (32.0-36.0); Mean Corpuscular Hemoglobin 27.9 pg (27.0-31.0); Mean Platelet Volume 7.7 fL (7.4-10.4); Platelet Count 482 thou/uL (130-400); RBC Distribution Width 11.3 % (11.5-14.5); Red Blood Cell (RBC) Count 5.57 mill/uL (4.70-6.10); White Blood Cell (WBC) Count 17.6 thou/uL (4.8-10.8)
[2021-07-25 08:21] LABS: ALT (SGPT) 75 U/L (8-55); AST (SGOT) 28 U/L (5-34); Albumin 3.5 g/dL (3.5-5.0); Alkaline Phosphatase 162 U/L (40-110); Anion Gap 12 mmol/L (10-20); BUN (Urea Nitrogen) 18 mg/dL (8.9-20.6); Bilirubin, Total 0.8 mg/dL (0.2-1.2); Calc. Creatinine Clearance 144 mL/min (70-130); Calcium 9.1 mg/dL (7.8-10.44); Carbon Dioxide 26 mmol/L (22-29); Chloride 98 mmol/L (98-107); Glucose 100 mg/dL (70-105); Potassium 4.1 mmol/L (3.5-5.1); Protein, Total 6.5 g/dL (6.0-8.3); Sodium 132 mmol/L (136-145)
[2021-07-25] MEDS: Enoxaparin Sodium 40 MG/0.4 ML SYRINGE SC SCH (09:35)
[2021-07-25] MEDS: Ascorbic Acid 500 mg Chewable Tablet PO SCH (09:36)
[2021-07-25] MEDS: Guaifenesin DM 100-10/5 ML UDCUP PO PRN ×2 (09:36→20:30)
[2021-07-25] MEDS: Zinc Sulfate 220 MG CAP PO SCH (09:36)
[2021-07-25] MEDS: BARICITINIB 2 MG TAB PO SCH (09:36)
[2021-07-25] MEDS: Famotidine 20 MG TAB PO SCH ×2 (09:36→20:29)
[2021-07-25] MEDS: Acetaminophen 325 MG TAB PO PRN (09:37)
[2021-07-25] MEDS: Albuterol 200 PUFF (6.7GM INHALER) INH PRN (09:38)
[2021-07-25] MEDS: Dexamethasone 10 MG/ML VIAL SLOW IVP SCH (09:38)
[2021-07-25] MEDS: Lorazepam 0.5 MG TAB PO PRN (20:29)
[2021-07-26 06:51] LABS: #Basophils 0.1 thou/uL (0.0-0.2); #Eosinphils 0.1 thou/uL (0.0-0.7); #Lymphocytes 1.9 thou/uL (1.20-3.40); #Monocytes 1.2 thou/uL (0.11-0.59); #Neutrophils 13.7 thou/uL (1.40-6.50); %Basophils 0.3 % (0.0-1.0); %Eosinophils 0.7 % (0.0-10.0); %Lymphocytes 11.1 % (21.0-51.0); %Monocytes 6.9 % (0.0-10.0); %Neutrophils 81.1 % (42.0-75.0); Hemoglobin 15.4 g/dL (14.0-18.0); Mean Corpuscular HGB CONC 33.1 g/dL (32.0-36.0); Mean Corpuscular Hemoglobin 29.1 pg (27.0-31.0); Mean Corpuscular Volume 87.9 fL (78.0-98.0); Mean Platelet Volume 7.8 fL (7.4-10.4); Platelet Count 404 thou/uL (130-400); RBC Distribution Width 11.4 % (11.5-14.5); Red Blood Cell (RBC) Count 5.31 mill/uL (4.70-6.10); White Blood Cell (WBC) Count 16.9 thou/uL (4.8-10.8)
[2021-07-26 07:14] LABS: ALT (SGPT) 73 U/L (8-55); AST (SGOT) 26 U/L (5-34); Albumin 3.3 g/dL (3.5-5.0); Alkaline Phosphatase 143 U/L (40-110); Anion Gap 10 mmol/L (10-20); BUN (Urea Nitrogen) 16 mg/dL (8.9-20.6); Bilirubin, Total 0.4 mg/dL (0.2-1.2); Calc. Creatinine Clearance 148 mL/min (70-130); Calcium 8.7 mg/dL (7.8-10.44); Carbon Dioxide 27 mmol/L (22-29); Chloride 101 mmol/L (98-107); Globulin 2.7 g/dL (2.4-3.5); Glucose 98 mg/dL (70-105); Potassium 4.2 mmol/L (3.5-5.1); Sodium 134 mmol/L (136-145)
[2021-07-26] MEDS: Ascorbic Acid 500 mg Chewable Tablet PO SCH (08:30)
[2021-07-26] MEDS: Zinc Sulfate 220 MG CAP PO SCH (08:30)
[2021-07-26] MEDS: Famotidine 20 MG TAB PO SCH ×2 (08:30→19:59)
[2021-07-26] MEDS: BARICITINIB 2 MG TAB PO SCH (08:30)
[2021-07-26] MEDS: Dexamethasone 10 MG/ML VIAL SLOW IVP SCH (08:31)
[2021-07-26] MEDS: Enoxaparin Sodium 40 MG/0.4 ML SYRINGE SC SCH (08:31)
[2021-07-26] MEDS: Lorazepam 0.5 MG TAB PO PRN (19:59)
[2021-07-26] MEDS: Guaifenesin DM 100-10/5 ML UDCUP PO PRN (19:59)
[2021-07-27] MEDS: BARICITINIB 2 MG TAB PO SCH (08:11)
[2021-07-27] MEDS: Zinc Sulfate 220 MG CAP PO SCH (08:12)
[2021-07-27] MEDS: Famotidine 20 MG TAB PO SCH (08:12)
[2021-07-27] MEDS: Ascorbic Acid 500 mg Chewable Tablet PO SCH (08:12)
[2021-07-27] MEDS: Enoxaparin Sodium 40 MG/0.4 ML SYRINGE SC SCH ×2 (08:12→08:28)
[2021-07-27] MEDS: Dexamethasone 10 MG/ML VIAL SLOW IVP SCH (08:13)
[2021-07-27 08:14] VITALS: BP 106/71; TEMP 97.6
== END 2021-07-27 16:03 | disposition home or self-care (01) | DRG 177 ==
LOC: ERS 10:07 → ERHOLD 16:18 → T4-A 20:22
PROVIDERS: ADMIT Internal Medicine; ATTEND Internal Medicine
PROC: 8E0ZXY6 Isolation (ICD-10-PCS; principal; 2021-07-19)
DX: U07.1 COVID-19 (principal); J12.82 Pneumonia due to coronavirus disease 2019; J96.01 Acute respiratory failure with hypoxia; E87.1 Hypo-osmolality and hyponatremia; K21.9 Gastro-esophageal reflux disease without esophagitis; E66.3 Overweight; G89.29 Other chronic pain; R79.89 Other specified abnormal findings of blood chemistry; F41.1 Generalized anxiety disorder; J98.2 Interstitial emphysema; Z68.29 Body mass index [BMI] 29.0-29.9, adult; Z79.899 Other long term (current) drug therapy
CPT/HCPCS: 36415; 71045; 80053; 82728; 83880; 84484; 85025; 85379; 86140; 87040; 93005; 96374; J1100; J1650; J1885; J2405

== ENCOUNTER 2021-09-01 15:36 | Emergency (ER) | payer SELFPAY ==
[2021-09-01 18:03] LABS: #Lymphocytes 2.5 thou/uL (1.20-3.40); #Monocytes 0.5 thou/uL (0.11-0.59); #Neutrophils 5.6 thou/uL (1.40-6.50); %Basophils 0.2 % (0.0-1.0); %Eosinophils 0.5 % (0.0-10.0); %Lymphocytes 28.8 % (21.0-51.0); %Monocytes 5.8 % (0.0-10.0); %Neutrophils 64.8 % (42.0-75.0); Hemoglobin 15.7 g/dL (14.0-18.0); Mean Corpuscular HGB CONC 34.6 g/dL (32.0-36.0); Mean Corpuscular Hemoglobin 30.8 pg (27.0-31.0); Mean Corpuscular Volume 89.1 fL (78.0-98.0); Mean Platelet Volume 9.2 fL (7.4-10.4); Platelet Count 238 thou/uL (130-400); Red Blood Cell (RBC) Count 5.09 mill/uL (4.70-6.10); White Blood Cell (WBC) Count 8.7 thou/uL (4.8-10.8)
[2021-09-01 18:22] LABS: ALT (SGPT) 26 U/L (8-55); AST (SGOT) 20 U/L (5-34); Albumin 4.4 g/dL (3.5-5.0); Alkaline Phosphatase 87 U/L (40-110); Anion Gap 13 mmol/L (10-20); BUN (Urea Nitrogen) 15 mg/dL (8.9-20.6); Bilirubin, Total 0.7 mg/dL (0.2-1.2); Calc. Creatinine Clearance 0 mL/min (70-130); Calcium 9.6 mg/dL (7.8-10.44); Carbon Dioxide 27 mmol/L (22-29); Chloride 103 mmol/L (98-107); Globulin 2.8 g/dL (2.4-3.5); Glucose 119 mg/dL (70-105); Potassium 3.8 mmol/L (3.5-5.1); Protein, Total 7.2 g/dL (6.0-8.3); Sodium 139 mmol/L (136-145)
== END 2021-09-01 19:32 | disposition home or self-care (01) ==
LOC: ERS 15:36
DX: J98.4 Other disorders of lung (principal); U09.9 Post COVID-19 condition, unspecified; K21.9 Gastro-esophageal reflux disease without esophagitis; Z79.899 Other long term (current) drug therapy
CPT/HCPCS: 36415; 71045; 80053; 84484; 85025; 85379; 93005

== ENCOUNTER 2021-11-10 12:30 | Emergency (ER) | payer OTHER, SELFPAY ==
[2021-11-10 13:40] LABS: Bilirubin Negative (Negative); Blood, Urine Negative (Negative); Clarity Clear (Clear); Glucose, Urine (Dipstick) Normal (Negative); Ketone, Urine Negative (Negative); Leukocyte Negative Leu/uL (Negative); Nitrite Negative (Negative); Protein, Urine (Dipstick) Negative (Neg-Trace); Urobilinogen Normal mg/dL (Less than 2); pH, Urine 6.5 (5.0-9.0)
[2021-11-10] MEDS ORDERED: Ketorolac Tromethamine 30 MG/ML VIAL ONE (15:07)
[2021-11-10] MEDS ORDERED: Cyclobenzaprine 10 MG TAB ONE (15:40)
== END 2021-11-10 16:20 | disposition home or self-care (01) ==
LOC: ERS 12:30
DX: M54.50 Low back pain, unspecified (principal); K21.9 Gastro-esophageal reflux disease without esophagitis; X50.0XXA Overexertion from strenuous movement or load, initial encounter; Y92.69 Other specified industrial and construction area as the place of occurrence of the external cause; Z87.19 Personal history of other diseases of the digestive system; Z86.16 Personal history of COVID-19; Z79.899 Other long term (current) drug therapy
CPT/HCPCS: 81003; 96372; 99283; J1885